=== PATIENT | female | born 1970 | race Caucasian/White ===

== ENCOUNTER 2016-08-24 10:07 | Emergency (ER) | payer SELFPAY ==
--- NOTE | 2016-08-24 10:36 | ED.PDOC ---
History of Present Illness - General Chief Complaint: General Stated Complaint: lighthededness,unable to catch breath Time Seen by Provider: 08/24/16 10:33 Source: patient, RN notes reviewed, Vital Signs reviewed, EMS notes reviewed Exam Limitations: no limitations - History of Present Illness Initial Comments: she stated [place] she became lightheaded left arm became tingly and started jerking also unable to catch her breath. Timing/Duration: 1-3 hours Allergies/Adverse Reactions: Allergies NO KNOWN ALLERGY Allergy (Verified 08/24/16 10:36) Home Medications: Ambulatory Orders Hydromorphone HCl [Exalgo] 32 mg PO DAILY 04/01/15 Paroxetine HCl [Paxil] 30 mg PO DAILY 04/01/15 Meloxicam 15 mg PO DAILY 05/14/16 Oxycodone HCl [Roxicodone] 15 mg PO Q8H 05/14/16 Pregabalin [Lyrica] 100 mg PO BID 05/14/16 Review of Systems - Review of Systems Constitutional: States: see HPI EENTM: States: other - hoarseness possible lump in throat referred to specialist Respiratory: States: short of breath Cardiology: States: no symptoms reported Gastrointestinal/Abdominal: States: no symptoms reported Genitourinary: States: no symptoms reported Musculoskeletal: States: back pain - chronic lbp disc herniation lumbar spine Skin: States: no symptoms reported Neurological: States: no symptoms reported, emotional problems - chronic ELLIOT, depression Endocrine: States: no symptoms reported Past Medical History (General) - Patient Medical History Hx Stroke: No Hx Congestive Heart Failure: No Hx Diabetes: No Hx Hepatitis C: Yes - recently diagnosed and has referral to see gi specialist Hx Other PMH: Yes - thyroid disease,chronic low back pain on pain management Surgical History: tonsillectomy, other - - Vaccination History Hx Influenza Vaccination: No Hx Pneumococcal Vaccination: No - Social History Hx Tobacco Use: Yes Cigarettes Packs Per Day: 1 Hx Alcohol Use: No Hx Substance Use: No Hx Substance Use Treatment: No Hx Depression: Yes - Female History Patient is a Female of Child Bearing Age (10 -59 yrs old): Yes Hx Last Menstrual Period: 08/24/16 Patient : No Family Medical History - Family History Mother Family History: Unknown Living Status: Still Living Hx Family Hypertension: Yes - mom Hx Cardiac Disease: Yes Hx Family;Other: Bipolar disorder-dad Physical Exam - Physical Exam General Appearance: Alert, Anxious, Comfortable, No apparent distress Eye Exam: bilateral normal Ears, Nose, Throat: hearing grossly normal, normal ENT inspection, normal pharynx Neck: non-tender, full range of motion, supple Respiratory: chest non-tender, lungs clear, normal breath sounds, no respiratory distress, no accessory muscle use Cardiovascular/Chest: normal peripheral pulses, regular rate, rhythm, no edema, no gallop, no JVD, no murmur Gastrointestinal/Abdominal: normal bowel sounds, non tender, soft, no organomegaly, no pulsatile mass Back Exam: normal inspection, no CVA tenderness, no vertebral tenderness Extremity: normal range of motion, non-tender, normal inspection, no pedal edema Neurologic: no motor/sensory deficits, alert, normal mood/affect, oriented x 3 Skin Exam: normal color, warm/dry, cyanosis Progress - Results/Orders Results/Orders: 08/24/16 10:38 EKG Assessment ONCE 08/24/16 10:45 EKG STAT Laboratory Results WBC 11.1 K/mm3 (4.8-10.8) H 08/24/16 10:54 RBC 4.84 M/mm3 (4.20-5.40) 08/24/16 10:54 Hgb 14.7 gm/dL (12.0-16.0) 08/24/16 10:54 Hct 43.8 % (36.0-47.0) 08/24/16 10:54 MCV 90.5 fl (81.0-99.0) 08/24/16 10:54 MCH 30.3 pg (27.0-31.0) 08/24/16 10:54 MCHC 33.5 g/dL (33.0-37.0) 08/24/16 10:54 RDW 13.4 % (11.5-14.5) 08/24/16 10:54 Plt Count 255 K/mm3 (130-400) 08/24/16 10:54 MPV 8.7 fl (7.40-10.4) 08/24/16 10:54 Absolute Neuts (auto) 9.30 K/uL (1.8-6.8) H 08/24/16 10:54 Absolute Lymphs (auto) 1.00 K/uL (1.0-3.4) 08/24/16 10:54 Absolute Monos (auto) 0.70 K/uL (0.2-0.8) 08/24/16 10:54 Absolute Eos (auto) 0.10 K/uL (0.0-0.4) 08/24/16 10:54 Absolute Basos (auto) 0.00 K/uL (0.0-0.1) 08/24/16 10:54 Neutrophils % 83.9 % (42.0-78.0) H 08/24/16 10:54 Lymphocytes % 8.7 % (20.0-50.0) L 08/24/16 10:54 Monocytes % 5.9 % (2.0-9.0) 08/24/16 10:54 Eosinophils % 1.2 % (1.0-5.0) 08/24/16 10:54 Basophils % 0.3 % (0.0-2.0) 08/24/16 10:54 D-Dimer, Quantitative < 200 ng/mL (0-230) 08/24/16 10:54 Sodium 139 mmol/L (135-145) 08/24/16 10:54 Potassium 3.8 mmol/L (3.6-5.0) 08/24/16 10:54 Chloride 106 mmol/L (101-111) 08/24/16 10:54 Carbon Dioxide 24 mmol/L (21-31) 08/24/16 10:54 Anion Gap 12.8 (12-18) 08/24/16 10:54 BUN 16 mg/dL (7-18) 08/24/16 10:54 Creatinine 0.75 mg/dL (0.6-1.3) 08/24/16 10:54 BUN/Creatinine Ratio 21.3 (10-20) H 08/24/16 10:54 Random Glucose 99 mg/dL (70-105) 08/24/16 10:54 Serum Osmolality 278.8 mOsm/L (275-295) 08/24/16 10:54 Calcium 8.8 mg/dL (8.4-10.2) 08/24/16 10:54 Total Bilirubin 0.9 mg/dL (0.2-1.0) 08/24/16 10:54 AST 31 IU/L (10-42) 08/24/16 10:54 ALT 13 IU/L (10-60) 08/24/16 10:54 Alkaline Phosphatase 63 IU/L (42-121) 08/24/16 10:54 Serum Total Protein 7.0 gm/dL (6.4-8.2) 08/24/16 10:54 Albumin 3.7 g/dl (3.2-5.5) 08/24/16 10:54 Globulin 3.3 gm/dL (2.3-3.5) 08/24/16 10:54 Albumin/Globulin Ratio 1.1 (1.1-1.9) 08/24/16 10:54 Urine Color Red (Yellow) H 08/24/16 11:40 Urine Appearance Cloudy (Clear) 08/24/16 11:40 Urine pH >= 9.0 (4.5-7.8) H* 08/24/16 11:40 Ur Specific [place] 1.015 (1.005-1.030) 08/24/16 11:40 Urine Protein 30 mg/dL 08/24/16 11:40 Urine Glucose (UA) Negative mg/dL (Negative) 08/24/16 11:40 Urine Ketones Trace mg/dL (NEGATIVE) 08/24/16 11:40 Urine Blood Large (Negative) H 08/24/16 11:40 Urine Nitrite Negative 08/24/16 11:40 Urine Bilirubin Negative (NEGATIVE) 08/24/16 11:40 Urine Urobilinogen 0.2 mg/dL (0.2-1.0) 08/24/16 11:40 Ur Leukocyte Esterase Trace (Negative) H 08/24/16 11:40 Urine RBC >50 /hpf H 08/24/16 11:40 Urine WBC 1-3 /hpf 08/24/16 11:40 Ur Epithelial Cells 0-1 /hpf 08/24/16 11:40 Amorphous Sediment 1+ 08/24/16 11:40 Urine Bacteria 0 08/24/16 11:40 Urine HCG, Qual Negative 08/24/16 10:36 Urine Opiates Screen Negative ng/mL (1999) 08/24/16 10:54 Urine Barbiturates Negative ng/mL (200) 08/24/16 10:54 Ur Phencyclidine Scrn Negative ng/mL (25) 08/24/16 10:54 U Amphetamin/Meth Scrn Negative ng/mL (1000) 08/24/16 10:54 U Benzodiazepines Scrn Negative ng/mL (200) 08/24/16 10:54 U Cocaine Metab Screen Negative ng/mL (300) 08/24/16 10:54 U Cannabinoids Screen Negative ng/mL (50) 08/24/16 10:54 Discuss lab results to patient chest x ray ekg that no acute abnormalities noted requiring hospitalization at time of visit - EKG/XRAY/CT EKG: Sinus - rhythm no acute changes noted hr 84 XRAY: chest - no abnormalities noted Departure - Departure Clinical Impression: Light-headedness Time of Disposition: 12:35 Disposition: Discharge to Home or Self Care Condition: Good Referrals: ELISE SANCHEZ [Primary Care Provider] - 1-2 Weeks Home Medications: Ambulatory Orders Hydromorphone HCl [Exalgo] 32 mg PO DAILY 04/01/15 Paroxetine HCl [Paxil] 30 mg PO DAILY 04/01/15 Meloxicam 15 mg PO DAILY 05/14/16 Oxycodone HCl [Roxicodone] 15 mg PO Q8H 05/14/16 Pregabalin [Lyrica] 100 mg PO BID 05/14/16 Additional Instructions: RETURN TO EMERGENCY ROOM NEEDED;PLEASE EXCUSE FROM WORK TODAY WAS ILL RETURN TO WORK WITHOUT RESTRICTIONS 08/27/2016.
[2016-08-24] MEDS ORDERED: LACTATED RINGERS 1,000 ML IVS ONE (10:44)
--- NOTE | 2016-08-24 11:31 | RAD ---
EXAM DESCRIPTION: XR CHEST 2 VIEWS CLINICAL HISTORY: sob COMPARISON: May 14, 2016 TECHNIQUE: PA/lateral FINDINGS: There is no cardiac or pulmonary abnormality. The lungs are clear. There is no effusion. IMPRESSION: No acute findings on today's study. Electronically signed by: Gustvao Huynh MD 08/24/2016 11:29
[2016-08-24 13:33] VITALS: BP 110/52; TEMP 98; O2SAT 99
== END 2016-08-24 12:57 | disposition home or self-care (01) ==
LOC: ER 10:07
DX: R42 Dizziness and giddiness (principal); F17.200 Nicotine dependence, unspecified, uncomplicated; M54.5 Low back pain; G89.29 Other chronic pain; B19.20 Unspecified viral hepatitis C without hepatic coma; Z79.899 Other long term (current) drug therapy

== ENCOUNTER → 2016-10-02 | Outpatient (CLI) | payer OTHER ==
--- NOTE | 2016-10-03 10:13 | MAM ---
EXAM DESCRIPTION: MAMMO BREAST SCREENING BILATERAL CAD, images were reviewed with CAD technology, R2 computer-aided detection. CLINICAL HISTORY: [facility]. COMPARISON: 2014. FINDINGS: Routine views are obtained. Scattered glandular pattern is stable. No dominant mass, architectural distortion or clustered microcalcification. IMPRESSION: Benign exam. BIRAD CATEGORY: 2 BENIGN RECOMMENDATIONS: FOLLOW-UP: Routine screening mammogram in one year. According to the [employer], yearly mammograms are recommended starting at age 40 and continuing as long as a woman is in good health. Any breast change noted on a breast self-exam should be reported promptly to the patient's healthcare provider. Breast MRI is recommended for women with an approximately 20-25% or greater lifetime risk of breast cancer, including women with a strong family history of breast or ovarian cancer and women who have been treated for Hodgkin's disease. Electronically signed by: Anusha Jimenez 10/03/2016 10:11
== END | disposition home or self-care (01) ==
LOC: MAMMO 14:49
PROVIDERS: ATTEND Family Medicine
DX: Z12.31 Encounter for screening mammogram for malignant neoplasm of breast (principal)

== ENCOUNTER 2017-10-25 19:00 | Emergency (ER) | payer OTHER ==
[2017-10-25] MEDS ORDERED: NITROGLYCERIN 0.4 MG 25 EA TAB SL ONE (19:02)
[2017-10-25] MEDS ORDERED: ASPIRIN TABLET 325 MG TAB PO ONE (19:02)
[2017-10-25] MEDS ORDERED: ONDANSETRON INJ 4 MG/2 ML VIAL IV ONE (19:02)
[2017-10-25] MEDS ORDERED: ALUM & MAG HYDROX-SIMETHICONE 30 ML, LIDOCAINE VISCOUS 2% 15 ML PO ONE ×2 (19:19)
[2017-10-25] MEDS ORDERED: LIDOCAINE HCL 2% (MOUTH-THROAT) 15 ML UD ONE (19:20)
[2017-10-25] MEDS ORDERED: ALUM & MAG HYDROX-SIMETHICONE 30 ML UD ONE (19:20)
--- NOTE | 2017-10-25 19:34 | RAD ---
EXAM: Chest,1 View CLINICAL INDICATION: 47-year-old female with chest pain. TECHNIQUE: Single view, AP portable chest was obtained. COMPARISON: Two-view chest 08/24/2016. FINDINGS: Unremarkable cardiac and mediastinal silhouette. Heart size is normal. Lungs are clear without focal opacity, pneumothorax or pleural effusions. The visualized bones are within normal limits. IMPRESSION: No acute cardiopulmonary abnormalities. Electronically signed by: Kristen Khoury MD 10/25/2017 7:33 PM CDT
--- NOTE | 2017-10-25 20:59 | ED.PDOC ---
History of Present Illness - General Chief Complaint: Chest Pain/NM Stated Complaint: chest pain/abd pain Time Seen by Provider: 10/25/17 19:40 Source: patient Exam Limitations: no limitations - History of Present Illness Timing/Duration: 1/2 hour Severity/Quality: severe Location: substernal, epigastric Chest Pain Radiation: no radiation Activities at Onset: none - Patient comes in crying with severe pain. Patient states feels full like bloating with severe pressure, worse in the RUQ. Patient has had similar pain before but it was mild and went away by itself. She often has GERD, bloating, and RUQ pain after eating. States pain is severe, associated with SOB no diaphoresis. She states it has never been this bad. She was not doing anything but resting at onset. Allergies/Adverse Reactions: Allergies NO KNOWN ALLERGY Allergy (Verified 08/24/16 10:36) Home Medications: Ambulatory Orders Hydromorphone HCl [Exalgo] 32 mg PO DAILY 04/01/15 Paroxetine HCl [Paxil] 30 mg PO DAILY 04/01/15 Meloxicam 15 mg PO DAILY 05/14/16 Oxycodone HCl [Roxicodone] 15 mg PO Q8H 05/14/16 Pregabalin [Lyrica] 100 mg PO BID 05/14/16 Review of Systems - Review of Systems Constitutional: States: no symptoms reported EENTM: States: no symptoms reported Respiratory: States: see HPI Cardiology: States: see HPI Gastrointestinal/Abdominal: States: see HPI Genitourinary: States: no symptoms reported Skin: States: no symptoms reported Neurological: States: no symptoms reported Endocrine: States: see HPI Past Medical History (General) - Patient Medical History Hx Seizures: No Hx Stroke: No Hx Dementia: No Hx Asthma: No Hx of COPD: No Hx Cardiac Disorders: No Hx Congestive Heart Failure: No Hx Pacemaker: No Hx Hypertension: No Hx Thyroid Disease: Yes Hx Diabetes: No Hx Gastroesophageal Reflux: Yes Hx Renal Disease: Yes Hx Cancer: No Hx Hepatitis C: Yes Hx MRSA: No Surgical History: tonsillectomy, other - Vaccination History Hx Tetanus, Diphtheria Vaccination: No Hx Influenza Vaccination: No Hx Pneumococcal Vaccination: No - Social History Hx Tobacco Use: Yes Hx Alcohol Use: Yes Hx Substance Use: Yes Hx Substance Use Treatment: Yes Hx Depression: Yes - Female History Hx Last Menstrual Period: 08/24/16 Patient : No - Triage Comment ED Triage Comment: Presents to ED--POV--AMB---C/O cheat pain/abd pain--onset 1829---anxious and hperventatling. No N/V/D--color pink--skin w/dry. Family Medical History - Family History Mother Family History: No Known Living Status: Still Living Hx Family Hypertension: Yes - mom Hx Cardiac Disease: Yes Hx Family;Other: Bipolar disorder-dad Physical Exam - Physical Exam General Appearance: Alert, Anxious, Obvious distress, Ill Appearing Eyes, Ears, Nose, Throat Exam: PERRL/EOMI, normal ENT inspection, TMs normal, pharynx normal Neck: non-tender, full range of motion, supple Respiratory: chest non-tender, lungs clear, normal breath sounds, no respiratory distress Cardiovascular/Chest: normal peripheral pulses, regular rate, rhythm, no edema, no gallop, no JVD, no murmur - no chest abnormalities no pain to palpation Gastrointestinal/Abdominal: normal bowel sounds, soft, distended - TTP at the RUQ with no rebound no guarding Extremity: normal range of motion, non-tender, normal inspection 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 After exam completed, GI cocktail ordered. She felt relief in the next 10 min and was smiling and happy on re-exam. After pain improved, pt states that she has been having pain but not as bad over the past several months. She understands I think this is more likely to be gallbladder pain. She was instructed that she should keep to a low fat diet and follow up with PCP in next 2-3 days. Patient is to return to ER for increased pain, intractable emesis, dehydration 10/25/17 21:21 Patient informed normal gallbladder US but may need HIDA scan. Will discharge home as she is now asymptomatic - EKG/XRAY/CT EKG: Sinus, no ST T wave changes Departure - Departure Clinical Impression: Abdominal pain Qualifiers: Abdominal location: right lower quadrant Qualified Code(s): R10.31 - Right lower quadrant pain Disposition: Discharge to Home or Self Care Condition: Good Departure Forms: ED Discharge - Pt. Copy, Patient Portal Self Enrollment Instructions: DI for Abdominal Pain-Adult Diet: low fat, low cholesterol Referrals: ELISE SANCHEZ [Primary Care Provider] - 1-2 Days (follow up to discuss if need HIDA scan or gastritis work up. ) Home Medications: Ambulatory Orders Hydromorphone HCl [Exalgo] 32 mg PO DAILY 04/01/15 Paroxetine HCl [Paxil] 30 mg PO DAILY 04/01/15 Meloxicam 15 mg PO DAILY 05/14/16 Oxycodone HCl [Roxicodone] 15 mg PO Q8H 05/14/16 Pregabalin [Lyrica] 100 mg PO BID 05/14/16 Additional Instructions: Return to ER for return to severe pain, intractable emesis, dehydration. Normal GB scan but may need HIDA scan
--- NOTE | 2017-10-25 21:20 | US ---
NAME: OJ PROCTOR PROCEDURE: US GALLBLADDER ORDER DATE: 10/25/2017 8:56 PM CDT ACCESSION NUMBER: [id number] Clinical History: ABD PAIN Indication: Same as above Comparison: None . Technique: Cordova scale evaluation of the right upper quadrant of the abdomen, with specific attention to the gallbladder was done ultrasonographically along with limited color Doppler evaluation Findings: The gallbladder wall thickness is normal and measures 1.8 mm. There is no visualization of sludge or gallstones in the gallbladder. There is no pericholecystic fluid. There is no ultrasonographically positive Ramírez's sign. The common duct is normal in transverse diameter and measures 4.2 mm. There is no intraductal common duct calculus. The liver measures 14.8 centimeters in length. There is fatty metamorphosis of the liver. There are no focal liver lesions. There is no intrahepatic biliary dilatation. The pancreas tail is not visualized. The pancreatic head and body are unremarkable . There is no documented ascitic fluid in the evaluated right upper quadrant of the abdomen. The visualized portion of the abdominal aorta and the inferior vena cava are unremarkable. There is no documented right-sided pleural effusion. Impression: Unremarkable ultrasound of the gallbladder Location of Interpretation: Teleradiology Electronically signed by: Clark Dixon MD 10/25/2017 9:05 PM CDT Workstation: [employer]
[2017-10-25 21:51] VITALS: BP 104/64; TEMP 97.9; O2SAT 94
== END 2017-10-25 21:52 | disposition home or self-care (01) ==
LOC: ER 19:00
DX: R10.31 Right lower quadrant pain (principal); K21.9 Gastro-esophageal reflux disease without esophagitis; E07.9 Disorder of thyroid, unspecified; Z86.19 Personal history of other infectious and parasitic diseases
CPT/HCPCS: 36415; 71045; 76705; 80048; 82550; 82553; 83880; 84484; 85025; 85610; 85730; 93005; J2405

== ENCOUNTER → 2018-02-15 | Outpatient (CLI) | payer OTHER | LOC: LAB.O 10:37 | PROVIDERS: ATTEND Internal Medicine | DX: M06.9 Rheumatoid arthritis, unspecified (principal) ==

== ENCOUNTER → 2018-06-20 | Outpatient (CLI) | payer OTHER ==
--- NOTE | 2018-06-20 16:54 | US ---
EXAM DESCRIPTION: Breast,Right: Ultrasound CLINICAL HISTORY: 47 yearsFemaleRT BREAST LUMP COMPARISON: Digital diagnostic tomosynthesis bilateral breast on this visit. Bilateral screening digital 2-D mammography 10/02/2016. TECHNIQUE: Transcutaneous scanning of the right breast utilizing puentes-scale and Doppler modes. Scanning performed by the licensed esthetician and Dr. Brannon. FINDINGS: Scanning of the undersurface of the anterior right breast from the middle third to the nipple. Make sure of fibroglandular and fatty echotexture in the retroareolar breast. 2 cm from the nipple, at 6:00 position, similar echotexture with no distinct solid mass or cyst. No parenchymal edema or large calcifications. No overlying skin changes. Normal vascularity. IMPRESSION: 1. Bi-Rads Category 2: Benign. 2. Please refer to digital bilateral diagnostic tomosynthesis mammographic examination and report on this visit The FINDINGS and the FOLLOW-UP plan were reviewed in person with the patient after the examination. Written communication explaining the IMPRESSION and FOLLOW-UP will be mailed to the patient and referring care provider. Electronically signed by: Rajan Brannon MD 06/20/2018 4:[address] [facility]
--- NOTE | 2018-06-21 15:29 | MAM ---
EXAM DESCRIPTION: 3D Diagnostic, Bilateral: Digital Mammography CLINICAL HISTORY: 47 yearsFemaleLUMP inferior anterior right breast lump and tenderness. No personal or remote history of breast cancer. Sister with ovarian cancer. Childbirth. Premenopausal. No HRT. Lifetime risk of developing breast cancer (Tyrer-Cuzick model) percentage is 7.8. COMPARISON: 2-D digital screening bilateral mammography 10/02/2016. Targeted right breast ultrasound following this examination.. TECHNIQUE: Bilateral CC LM MLO projection full-field images, digital mammographic tomosynthesis technique. No special images. CAD not utilized. FINDINGS: The breast parenchymal density pattern is: Scattered areas of fibroglandular density. No skin thickening or nipple retraction nipple marker on the undersurface of the anterior right breast at the 5:00 position approximately 3 cm from the nipple. Small solitary calcifications. ULTRASOUND: Scanning of the undersurface of the anterior right breast from the middle third to the nipple. Make sure of fibroglandular and fatty echotexture in the retroareolar breast. 2 cm from the nipple, at 6:00 position, similar echotexture with no distinct solid mass or cyst. No parenchymal edema or large calcifications. No overlying skin changes. Normal vascularity. IMPRESSION: Benign exam. BIRAD CATEGORY: 2 BENIGN FINDINGS. RECOMMENDATIONS: FOLLOW UP: Routine digital bilateral mammographic screening, one year interval from June 2018. Written communication explaining the IMPRESSION and follow-up, will be mailed to the patient and referring health care provider. According to the [employer], yearly mammograms are recommended starting at age 40 and continuing as long as a woman is in good health. Any breast change noted on a breast self-exam should be reported promptly to the patient's healthcare provider. Breast MRI is recommended for women with an approximately 20-25% or greater lifetime risk of breast cancer, including women with a strong family history of breast or ovarian cancer and women who have been treated for Hodgkin's disease. A negative mammographic report should not delay tissue diagnosis in patients with significant clinical history or physical findings. Extremely dense breast tissue limits the sensitivity of digital mammography. Electronically signed by: Rajan Brannon MD 06/21/2018 3:28 PM [employer]
== END ==
LOC: MAMMO 10:30
PROVIDERS: ATTEND Emergency Medicine
DX: N63.0 Unspecified lump in unspecified breast (principal)
CPT/HCPCS: 76641; 77066; G0279

== ENCOUNTER 2018-10-09 07:32 | Emergency (ER) | payer OTHER ==
[2018-10-09 07:46] VITALS: TEMP 100.5; O2SAT 95
--- NOTE | 2018-10-09 07:54 | ED.PDOC ---
History of Present Illness - General Chief Complaint: General Stated Complaint: fever, cough, congestion Time Seen by Provider: 10/09/18 07:33 Source: patient Exam Limitations: no limitations - History of Present Illness Initial Comments: Patient presents with cough for two days. It is productive of yellow and green sputum with occasional streaks of blood. She also has had a sore throat for two days as well as a fever. She says that it hurts to cough. No other complaints. Timing/Duration: other - 2 days Severity: mild Improving Factors: nothing Worsening Factors: nothing Associated Symptoms: other - as in HPI Allergies/Adverse Reactions: Allergies NO KNOWN ALLERGY Allergy (Verified 08/24/16 10:36) Home Medications: Ambulatory Orders Hydromorphone HCl [Exalgo] 32 mg PO DAILY 04/01/15 Paroxetine HCl [Paxil] 30 mg PO DAILY 04/01/15 Meloxicam 15 mg PO DAILY 05/14/16 Oxycodone HCl [Roxicodone] 15 mg PO Q8H 05/14/16 Pregabalin [Lyrica] 100 mg PO BID 05/14/16 Review of Systems - Review of Systems Constitutional: States: see HPI EENTM: States: see HPI Respiratory: States: see HPI Cardiology: States: no symptoms reported Gastrointestinal/Abdominal: States: no symptoms reported Genitourinary: States: no symptoms reported Musculoskeletal: States: no symptoms reported Skin: States: no symptoms reported Neurological: States: no symptoms reported Endocrine: States: no symptoms reported Hematologic/Lymphatic: States: no symptoms reported Past Medical History (General) - Patient Medical History Hx Seizures: No Hx Stroke: No Hx Dementia: No Hx Asthma: No Hx of COPD: No Hx Cardiac Disorders: No Hx Congestive Heart Failure: No Hx Pacemaker: No Hx Hypertension: No Hx Thyroid Disease: Yes Hx Diabetes: No Hx Gastroesophageal Reflux: Yes Hx Renal Disease: Yes Hx Cancer: No Hx Hepatitis C: Yes Hx MRSA: No Surgical History: tonsillectomy - Vaccination History Hx Tetanus, Diphtheria Vaccination: No Hx Influenza Vaccination: No Hx Pneumococcal Vaccination: No Immunizations Up to Date: No - Social History Hx Tobacco Use: Yes Hx Alcohol Use: No Hx Substance Use: No Hx Substance Use Treatment: No Hx Depression: No - Female History Hx Last Menstrual Period: 08/24/16 Patient : No Family Medical History - Family History Mother Family History: No Known Living Status: Still Living Hx Family Hypertension: Yes - mom Hx Cardiac Disease: Yes Hx Family;Other: Bipolar disorder-dad Physical Exam - Physical Exam General Appearance: Alert Eye Exam: bilateral normal Ears, Nose, Throat: pharyngeal erythema - mild Neck: lymphadenopathy (L) Respiratory: lungs clear, normal breath sounds Cardiovascular/Chest: normal peripheral pulses, regular rate, rhythm Gastrointestinal/Abdominal: normal bowel sounds, non tender, soft Progress - Progress Progress: 10/09/18 08:45 Influenza A positive. Rapid strep negative. Patient was offered Tamiflu RX but declined. E.R. warnings given. Care instructions given. Questions were elicited and answered. The patient voiced understanding and agreement with the plan. Departure - Departure Clinical Impression: Influenza A Disposition: Discharge to Home or Self Care Condition: Good Departure Forms: ED Discharge - Pt. Copy, Patient Portal Self Enrollment Instructions: Flu, Adult (DC) Diet: resume usual diet, other - increase fluids Activity: increase activity as tolerated Referrals: ELISE SANCHEZ [Primary Care Provider] - 1-2 Weeks Home Medications: Ambulatory Orders Hydromorphone HCl [Exalgo] 32 mg PO DAILY 04/01/15 Paroxetine HCl [Paxil] 30 mg PO DAILY 04/01/15 Meloxicam 15 mg PO DAILY 05/14/16 Oxycodone HCl [Roxicodone] 15 mg PO Q8H 05/14/16 Pregabalin [Lyrica] 100 mg PO BID 05/14/16 Additional Instructions: Avoid aspirin. Tylenol only for pain and fever control. Over the counter flu remedies may be helpful.
[2018-10-09 08:59] VITALS: BP 96/70
== END 2018-10-09 08:59 | disposition home or self-care (01) ==
LOC: ER 07:32
DX: J10.1 Influenza due to other identified influenza virus with other respiratory manifestations (principal); N18.9 Chronic kidney disease, unspecified; E07.9 Disorder of thyroid, unspecified; K21.9 Gastro-esophageal reflux disease without esophagitis; Z86.19 Personal history of other infectious and parasitic diseases; Z87.891 Personal history of nicotine dependence; Z79.899 Other long term (current) drug therapy

== ENCOUNTER → 2018-11-28 | Outpatient (CLI) | payer OTHER | LOC: LAB.O 08:42 | DX: M19.90 Unspecified osteoarthritis, unspecified site (principal) ==

== ENCOUNTER → 2018-12-19 | Outpatient (CLI) | payer OTHER ==
--- NOTE | 2018-12-19 09:48 | MRI ---
EXAM DESCRIPTION: Lumbar Spine w/o Contrast CLINICAL HISTORY: RADICULOPATHY LUMBAR REGION COMPARISON: Previous MRI of the lumbar spine July 30, 2013 TECHNIQUE: MRI of the lumbar spine is performed according to our usual protocol with axial and sagittal multi sequence imaging. FINDINGS: Sagittal T2 images reveal decreased signal intensity consistent with desiccation of the intervertebral discs at levels L4-5 and L5-S1. Posterior annular bulges are mild at these levels. No prevertebral mass or aneurysm. Linear lucency intensity line in the anterior aspect of the S1 vertebra is without surrounding edema and may be artifact or old trauma. Lower cord and conus appear normal. Tip of the conus is behind T12. On the sagittal T2 images, the posterior disc protrusion at L4-5 appears smaller on the present exam measuring approximately 4 mm in AP dimension and 6 mm in craniocaudal dimension compared to previous AP dimension of 7 mm and previous craniocaudal dimension of 1.1 cm. Sagittal T1 images reveal benign marrow signal characteristics. Small hemangioma in L4. Increased signal intensity consistent with Modic type II changes around degenerated L5-S1 disc. Linear low signal intensity crossing the anterior aspect of the lower L5 and upper S1 appears artifactual on the T1 images. Normal T1 signal intensity and appearance of the lower cord and conus. Sagittal STIR images are positive for reactive increased signal intensity in the pedicles at L4 and L5. No spondylolysis. Increased fluid in the left L4-5 facet joint. No paraspinous fluid collection or cystic lesion. Axial T1 and T2-weighted images were obtained to evaluate the disc levels. T12-L1: No posterior annular bulge or herniation. No spinal stenosis or neural foraminal narrowing. Facets appear normal. Normal appearance of the lower cord and conus. L1-2: No posterior annular bulge or herniation. No spinal stenosis or neural foraminal narrowing. Facets appear normal. L2-3: No posterior annular bulge or herniation. No spinal stenosis or neural foraminal narrowing. Facets appear normal. L3-4: No posterior annular bulge or herniation. No spinal stenosis or significant neural foraminal narrowing. Moderate facet hypertrophy with ligamentum flavum thickening moderately narrow subarticular recesses bilaterally. L4-5: Moderate diffuse posterior annular bulge appears worsened compared to the previous study. Severe narrowing of subarticular recesses crowding the descending L5 nerve roots. AP diameter spinal canal mid sagittal plane is narrowed to 1 cm. Marked facet hypertrophic spurring is seen with increased fluid in the left facet joint. Marked ligamentum flavum thickening narrows the mediolateral width of the canal to 1 cm. Sagittal images show moderately severe left neural foraminal narrowing related to bulging disc material and facet spurring contacting the exiting left L4 nerve root. Mild neural foraminal narrowing on the right. L5-S1: Moderate diffuse posterior annular bulge with midline accentuation and slight extension inferiorly behind the upper endplate of S1. This appears smaller than on the previous study (see measurements above). No spinal stenosis. There is moderate right and mild left neural foraminal narrowing. Moderate facet hypertrophy with ligamentum flavum thickening causes moderate right and mild left subarticular recess narrowing crowding the descending S1 nerve roots. Sacrum appears intact. No retroperitoneal mass or aneurysm. IMPRESSION: Decreased size of L5-S1 disc protrusion compared to previous study. Worsened diffuse annular bulge at L4-5 with mild spinal stenosis. Electronically signed by: Shabbir Quintana MD 12/19/2018 9:46 AM CDT
--- NOTE | 2018-12-19 09:58 | MRI ---
EXAM DESCRIPTION: Cervical Spine CLINICAL HISTORY: RADICULOPATHY CERVICAL REGION COMPARISON: Previous MRI of the cervical spine from April 27, 2010 TECHNIQUE: MRI of the cervical spine is performed according to our usual protocol. FINDINGS: Sagittal T2 images reveal decreased signal intensity within the intervertebral discs. Normal T2 appearance of the cervical cord. Posterior discal abnormalities are prominent finding with mild posterior annular bulges at C5-6 and C6-7, new compared to the previous study mild loss of height at these disc levels has developed since previous exam. No significant spinal stenosis or cord compression. Sagittal T1 images show benign marrow signal characteristics. Normal T1 appearance of the cervical and upper thoracic spinal cord. Normal alignment of the vertebral bodies and facets. Sagittal STIR images are negative for high signal intensity marrow edema within the vertebral bodies or posterior elements. No paraspinous fluid collection or cystic lesion. Axial images were obtained to evaluate the disc levels. C2-3: Normal posterior disc margin with no spinal stenosis or neural foraminal narrowing. Mild facet hypertrophic changes. Normal appearance of the cord at this level. C3-4: Normal posterior disc margin with no spinal stenosis or neural foraminal narrowing. Facets appear normal. Normal appearance of the cord at this level. C4-5: Normal posterior disc margin with no spinal stenosis or neural foraminal narrowing. Mild facet hypertrophy on the right. Normal appearance of the cord at this level. C5-6: Minimally prominent posterior disc margin with slight midline left paracentral accentuation. No spinal stenosis or neural foraminal narrowing. Facets appear normal. Normal appearance of the cord at this level. C6-7: Mild prominence of the posterior disc margin with no spinal stenosis. There is mild right neural foraminal narrowing related to uncinate hypertrophy. Facets appear normal. Normal appearance of the cord at this level. C7-T1: Normal posterior disc margin with no spinal stenosis or neural foraminal narrowing. Facets appear normal. Normal appearance of the cord at this level. IMPRESSION: Mild posterior bulges at C5-6 and C6-7 without spinal stenosis. Electronically signed by: Shabbir Quintana MD 12/19/2018 9:56 AM CDT
== END ==
LOC: MRI 08:03
PROVIDERS: ATTEND Electrodiagnostic Medicine
DX: M50.122 Cervical disc disorder at C5-C6 level with radiculopathy (principal); M50.123 Cervical disc disorder at C6-C7 level with radiculopathy; M51.17 Intervertebral disc disorders with radiculopathy, lumbosacral region

== ENCOUNTER → 2019-01-21 | Outpatient (CLI) | payer OTHER ==
--- NOTE | 2019-01-22 12:59 | US ---
EXAM DESCRIPTION: Pelvic,Non-OB (accession [id number]), Pelvis Transvaginal (accession [id number]): Ultrasound. CLINICAL HISTORY: 48 years Female AMENORRHEA TRANSABDOMINAL + TRANSVAGINAL COMPARISON: None. TECHNIQUE: Endovaginal scanning; Cordova-scale and Doppler modes. FINDINGS: Uterus 8.9 x 5.4 x 4.7 cm cc. Endometrial thickness is 12 mm. Myometrium appears heterogeneous. Slightly lobulated 2.3 x 1.9 x 1.8 cm mass anterior to the endometrium.. Uterus not retroflexed. Cervix contains a 3.8 mm and 3.9 mm cyst. Cul-de-sac contains no fluid. Right ovary not visualized in the right adnexa. No adnexal mass or free fluid. Left ovary 2.6 x 2.6 x 2.1 cm. Normal pulse-wave and color Doppler vascularity. 2.3 x 2.0 x 1.9 complex cyst. Contains debris and minimal wall thickening. No septations or vascular nodules. No adnexal mass or free fluid. IMPRESSION: 1. Indeterminately sized 2.3 cm left ovarian complex indeterminate cyst. If patient is pre-menopausal: recommend pelvic US follow-up in 6-12 weeks for cyst <= 7cm; if unchanged, continue f/u with pelvic US OR MRI w/IV contrast. if f/u studies do not confirm endometrioma or dermoid, consider surgical evaluation. If cyst > 7cm, recommend pelvic MRI w/IV contrast or surgical evaluation. If patient is post-menopausal, recommend surgical evaluation. Reference: Radiology 2010 Apr;256(3):943-54. 2. Endometrial thickening 12 mm. Consider gynecological consult. Nabothian cysts in the cervix. 2.3 cm fibroid anterior to the myometrium. Cannot see right ovary in the right adnexa. No free fluid. Electronically signed by: Rajan Brannon MD 01/22/2019 12:57 PM CDT
== END ==
LOC: US 09:51
PROVIDERS: ATTEND Emergency Medicine
DX: N91.2 Amenorrhea, unspecified (principal); N83.202 Unspecified ovarian cyst, left side; N88.8 Other specified noninflammatory disorders of cervix uteri; D25.9 Leiomyoma of uterus, unspecified

== ENCOUNTER → 2019-03-11 | Outpatient (CLI) | payer OTHER ==
--- NOTE | 2019-03-11 18:18 | US ---
EXAM DESCRIPTION: Pelvis Transvaginal (accession [id number]), Pelvic,Non-OB (accession [id number]): Ultrasound. CLINICAL HISTORY: 48 years Female OVARIAN CYST COMPARISON: Pelvic ultrasound 01/21/2019. TECHNIQUE: Transcutaneous scanning through the urine filled bladder. Endovaginal scanning. Cordova-scale and Doppler modes. FINDINGS: Uterus 8.1 x 4.7 x 4.7 cm. Endometrial thickness 9.2 mm. The myometrium appears heterogeneous. The uterus is not retroverted or retroflexed. Hypoechoic solid capsule lesion near the fundus measuring 5.4 x 4.8 x 4.6 mm. Fibroid seen on the prior study anterior to the endometrium measures 2.0 x 1.9 x 1.6 cm. Cervix contains a 5.8 mm cyst.. Cul-de-sac contains no fluid. Right ovary not well seen No adnexal mass or free fluid. Left ovary 2.4 x 2.0 x 1.7 cm. Normal waveform and color Doppler vascularity. Complex ovarian cyst measuring 1.5 x 1.2 x 1.2 cm. Decreased in size since the prior study. No adnexal mass or free fluid. IMPRESSION: 1. 1.5 cm indeterminate left ovarian cyst. Decreased in size since the prior study. If patient is pre-menopausal, recommend pelvic US follow-up in 6-12 weeks; if unchanged, continue follow-up with pelvic US OR MRI w/IV contrast - if follow-up studies do not confirm endometrioma or dermoid, consider surgical evaluation. If patient is post-menopausal, recommend surgical evaluation. Reference: Radiology 2010 Apr;256(3):943-54 2. Fibroid 2 cm stable. Smaller fibroid 5.4 mm. Endometrial thickening if patient is postmenopausal. Right ovary not seen. No fluid in the cul-de-sac or adnexa. Electronically signed by: Rajan Brannon MD 03/11/2019 6:17 PM CDT
== END ==
LOC: US 11:00
PROVIDERS: ATTEND Emergency Medicine
DX: N83.292 Other ovarian cyst, left side (principal); D25.9 Leiomyoma of uterus, unspecified

== ENCOUNTER → 2019-05-07 | Outpatient (CLI) | payer MEDICARE, OTHER ==
--- NOTE | 2019-05-09 13:37 | MRI ---
Study: MRI of the Left Knee. Indication: TEAR OF MEDIAL MENISCUS OF KNEE Technique: Multiplanar, multi sequence MRI of the left knee was obtained without intravenous contrast. Comparison: None. Findings: ACL, PCL, MCL, and lateral collateral ligament complex intact. Mild scattered degenerative signal medial meniscus without tear. Prominent horizontally oriented increased PD signal posterior horn and body lateral meniscus. This may reflect a horizontal cleavage tear, however grade articular surface disruption is difficult to confirm. Grade 2 and mild grade 3 chondral thinning medial and lateral knee compartments. Low-grade tendinosis quadriceps tendon insertion. Ossification distal patellar tendon. Patella normally located. Grade 4 chondral fissuring and subchondral marrow change junction lateral patellar facet and apex. Tiny effusion. No acute fracture. Tiny Bhakta's cyst. Impression: Prominent horizontally oriented degenerative signal posterior horn and body medial meniscus. Horizontal cleavage tearing may be present at this site but is difficult to confirm. Short-term follow-up may prove useful. Degenerative signal change medial meniscus without tear. Grade 2 and mild grade 3 chondral thinning medial and lateral knee compartments. Low-grade tendinosis quadriceps tendon insertion. Grade 4 chondral fissuring and subchondral marrow change junction lateral patellar facet and apex. Tiny effusion. Electronically signed by: Maximiliano Monterroso MD 05/09/2019 1:35 PM CDT
== END ==
LOC: MRI 13:00
PROVIDERS: ATTEND Emergency Medicine
DX: S83.242D Other tear of medial meniscus, current injury, left knee, subsequent encounter (principal); M76.892 Other specified enthesopathies of left lower limb, excluding foot; M94.8X6 Other specified disorders of cartilage, lower leg

== ENCOUNTER → 2019-06-05 | Outpatient (CLI) | payer MEDICARE, OTHER ==
--- NOTE | 2019-06-05 13:31 | RAD ---
EXAM DESCRIPTION: Pelvis CLINICAL HISTORY: 48 years Female, PAIN IN LEFT HIP COMPARISON: None. TECHNIQUE: AP radiograph of the pelvis was performed. FINDINGS: The pelvic ring appears grossly intact on this single AP radiograph. No acute fracture or dislocation. Bilateral sacroiliac joints appear normal. Bilateral hip joints appear normal. The visualized lumbo-sacral spine demonstrates mild degenerative changes. IMPRESSION: Single AP radiograph of the pelvis demonstrates grossly intact pelvic ring. Electronically signed by: Almas Silvestre MD 06/05/2019 1:29 PM CDT
--- NOTE | 2019-06-05 13:32 | RAD ---
EXAM DESCRIPTION: Knee,Left Complete CLINICAL HISTORY: 48 years Female, PAIN IN LEFT KNEE TECHNIQUE: 4 views of the left knee were performed. COMPARISON: None available. FINDINGS: The visualized bones appear well mineralized. No acute fracture or dislocation. The medial and lateral compartment joint space are well-maintained. No evidence of suprapatellar joint effusion. The soft tissues appear grossly unremarkable. IMPRESSION: 1. Grossly unremarkable radiographs of the left knee. Electronically signed by: Almas Silvestre MD 06/05/2019 1:31 PM CDT
== END ==
LOC: RAD 08:10
PROVIDERS: ATTEND Orthopaedic Surgery
DX: M25.552 Pain in left hip (principal); M25.562 Pain in left knee

== ENCOUNTER → 2019-08-11 | Outpatient (CLI) | payer MEDICARE, OTHER | LOC: LAB.O 09:56 | PROVIDERS: ATTEND Orthopaedic Surgery | DX: Z01.818 Encounter for other preprocedural examination (principal) ==

== ENCOUNTER 2019-09-03 05:43 | Day surgery (SDC) | payer MEDICARE, OTHER ==
--- NOTE | 2019-09-01 10:27 | RAD ---
EXAM DESCRIPTION: Chest,2 Views CLINICAL HISTORY: preop COMPARISON: October 25, 2017 FINDINGS: The cardiomediastinal silhouette is unremarkable. There is no airspace consolidation or pleural effusion. The bronchovascular markings are within normal limits, and the lungs are not hyperinflated. There is no pneumothorax or acute fracture. IMPRESSION: Negative exam. Electronically signed by: Toribio Hobson MD 09/01/2019 10:25 AM [facility]
[2019-09-03] MEDS ORDERED: MIDAZOLAM INJ 2 MG/2 ML VIAL ONE (07:25)
[2019-09-03] MEDS ORDERED: fentaNYL CITRATE INJ 50 MCG/ML AMP ONE (07:26)
[2019-09-03] MEDS ORDERED: ceFAZolin SODIUM 1 GM VIAL ONE ×2 (07:28→09:00)
[2019-09-03] MEDS ORDERED: BUPIVACAINE 0.5% 30 ML VIAL INJ ONE ×2 (07:29→07:39)
[2019-09-03] MEDS ORDERED: BUPIVACAINE LIPOSOME 13.3 MG/ML VIAL INJ ONE ×2 (07:29→07:39)
[2019-09-03] MEDS ORDERED: VANCOMYCIN HCL INJ 1,000 MG VIAL IVPB ONE ×2 (07:29→07:39)
[2019-09-03] MEDS ORDERED: ceFAZolin SODIUM 1 GM VIAL IRRIG ONE (07:39)
[2019-09-03] MEDS ORDERED: LACTATED RINGERS 1,000 ML IVS ONE (08:58)
[2019-09-03] MEDS ORDERED: SODIUM CHL 0.9% 100ML MINI-BAG 100 ML IVPB ONE (08:59)
[2019-09-03] MEDS ORDERED: LACTATED RINGERS 1,000 ML ONE (09:00)
[2019-09-03] MEDS ORDERED: PROPOFOL 200 MG/20 ML VIAL IV ONE (10:00)
[2019-09-03] MEDS ORDERED: LIDOCAINE 1% 10 ML VIAL INJ ONE (10:00)
[2019-09-03] MEDS ORDERED: ONDANSETRON INJ 4 MG/2 ML VIAL IV ONE (10:00)
[2019-09-03] MEDS ORDERED: DEXAMETHASONE INJ 10 MG/ML VIAL IV ONE (10:00)
[2019-09-03] MEDS: MORPHINE SULFATE INJ 10 MG/ML VIAL ONE ×4 (10:53→11:28)
[2019-09-03] MEDS ORDERED: ONDANSETRON INJ 4 MG/2 ML VIAL ONE (10:58)
[2019-09-03 12:11] VITALS: O2SAT 96
[2019-09-03 13:08] VITALS: BP 108/73; TEMP 98.3
--- NOTE | 2019-09-05 09:06 | OP ---
DATE OF PROCEDURE: 09/03/19 PREOPERATIVE DIAGNOSIS: 1. Left knee pain with possible meniscus tear. POSTOPERATIVE DIAGNOSIS: 1. Chondromalacia of the left knee. PROCEDURE: 1. Debridement. SURGEON: Jm Castillo MD. FOOD ADVISER: Rajan Kang CST, SA-C. ANESTHESIA: General anesthesia. COMPLICATIONS: None. FINDINGS: 1. Chondromalacia involving the medial compartment. 2. Stable medial meniscus. 3. Normal ACL, normal PCL. 4. Normal posterior compartment. 5. Softening of the lateral compartment cartilage. 6. Degenerative fraying of the lateral meniscus, otherwise stable. 7. Normal lateral gutter. 8. Normal suprapatellar pouch. 9. Softening of the patellofemoral cartilage. 10. Normal medial gutter. INDICATION: Ms. Dueñas has a history of severe knee pain that has been refractory to conservative measures. Because of her ongoing discomfort, she has requested operative intervention. After discussing the risks, benefits and alternatives to that, the patient has given informed consent for that. PROCEDURE: The patient was brought to the Operating Room and placed in supine position. General anesthesia was induced and the patient's leg was sterilely prepped and draped. Following prepping and draping, standard anteromedial and anterolateral portals were established. Diagnostic arthroscopy was carried out with the above findings. Following diagnostic arthroscopy, a 3.5 mm full radius shaver was used to debride the medial compartment. Following debridement, the knee was thoroughly irrigated and drained. Following draining of the knee, the wounds were closed with Nylon suture. Sterile dressings were placed. The patient was awoken from anesthesia and taken to Recovery. POSTOPERATIVE PLAN: The patient will be non-weightbearing and will followup with us in two days. #[id number] [facility]
== END 2019-09-03 12:55 | disposition home or self-care (01) ==
LOC: AMB 05:43
PROVIDERS: ATTEND Orthopaedic Surgery
DX: M25.562 Pain in left knee (principal); M94.262 Chondromalacia, left knee; E03.9 Hypothyroidism, unspecified; K21.9 Gastro-esophageal reflux disease without esophagitis; F32.9 Major depressive disorder, single episode, unspecified; E55.9 Vitamin D deficiency, unspecified; Z79.899 Other long term (current) drug therapy
CPT/HCPCS: 01400; 29877; 71046; 80048; 80307; 81001; 81025; J0690; J1100; J2250; J2270; J2405; J3010; J3370; J3490; J7050; J7120

== ENCOUNTER → 2020-02-02 | Outpatient (CLI) | payer MEDICARE, MEDICAID ==
--- NOTE | 2020-02-02 11:43 | RAD ---
EXAM DESCRIPTION: Knee,Left Complete: CR/DR/XR. CLINICAL HISTORY: 49 years FemalePAIN IN LEFT KNEE COMPARISON: Left knee radiographs May 2019. TECHNIQUE: 4 views AP neutral standing, AP 45 degrees elections banding, lateral standing, and patella sunrise view. Left knee. FINDINGS: Minimal narrowing of the medial compartment. No marginal spurs. Normal bone density with no fracture. Patellar sunrise view negative. Small suprapatellar effusion. IMPRESSION: Medial compartment narrowing left knee stable since the prior study. Small left suprapatellar effusion. No acute bony or joint margin abnormality. Electronically signed by: Rajan Brannon MD 02/02/2020 11:41 AM CDT
== END ==
LOC: RAD 09:12
PROVIDERS: ATTEND Orthopaedic Surgery
DX: M25.862 Other specified joint disorders, left knee (principal); M25.462 Effusion, left knee

== ENCOUNTER → 2020-02-19 | Outpatient (CLI) | payer MEDICARE, MEDICAID ==
--- NOTE | 2020-02-19 10:04 | MRI ---
EXAM DESCRIPTION: MRI left knee CLINICAL HISTORY: Knee pain. Evaluate for meniscal injury COMPARISON: 05/07/2019 TECHNIQUE: Multiplanar, multisequence MR images of the left knee FINDINGS: Intrameniscal signal along the inferior aspect of the posterior horn lateral meniscus and contiguous mid body of the lateral meniscus. Horizontal cleavage without a diagnostic extension to an articular surface. Similar appearance on previous study. Lateral tibial cartilage thinning along the joint line posteriorly similar to the previous study. No full-thickness defect or subchondral marrow abnormality No medial meniscal tear. Medial femorotibial cartilage intact Patellar chondral signal heterogeneity and surface irregularity. A couple small foci of edema at the apex and lateral facet from full-thickness fissuring. Similar appearance on previous study. Trochlear cartilage intact ACL, PCL, MCL and fibular collateral ligament are normal Biceps femoris, popliteus and iliotibial band tendons are intact. Patellar and quadriceps tendons and tendons of the posterior medial knee are intact. Sequela of remote Stan-Schlatter without acute abnormality Minimal joint fluid. No synovitis or intra-articular loose body IMPRESSION: Incomplete horizontal cleavage of the posterior horn/body lateral meniscus without diagnostic extension to an articular surface. Similar appearance on previous study Patellar chondrosis with full-thickness fissures and tiny foci of subchondral marrow edema, similar to previous study Electronically signed by: Dawit Gruber MD 02/19/2020 10:02 AM CDT
== END ==
LOC: MRI 07:54
PROVIDERS: ATTEND Orthopaedic Surgery
DX: S83.232D Complex tear of medial meniscus, current injury, left knee, subsequent encounter (principal); M22.42 Chondromalacia patellae, left knee; R60.9 Edema, unspecified